=== PATIENT | male | born 1995 | race Asian ===

== ENCOUNTER 2020-05-30 23:20 | Emergency (ER) | payer SELFPAY ==
[~2020-05-30] VITALS: Ht 172.7 cm; Wt 138.0 kg
[2020-05-30 23:31] VITALS: BP 150/103; TEMP 97.9
[2020-05-31] MEDS ORDERED: NORCO 325 MG-51 TAB PO (00:08)
[2020-05-31] MEDS ORDERED: AMOXICILLIN 8751 TAB PO (00:08)
[2020-05-31 00:23] VITALS: PULSE 80
== END 2020-05-31 00:24 | disposition home or self-care (01) ==
LOC: COL.ER 23:20
DX: K04.7 Periapical abscess without sinus (principal)